=== PATIENT | male | born 2000 | race Caucasian/White ===

== ENCOUNTER 2022-10-07 21:13 | Emergency (ER) | payer OTHER, SELFPAY ==
[2022-10-07 21:19] VITALS: BP 143/100; PULSE 90; RESP 18; TEMP 36.6; O2SAT 96; BMI 21.5
[2022-10-07 21:54] LABS: Basophils # 0.1 10^3/uL (0.0-0.1); Basophils % 0.4 %; Eosinophils # 0.1 10^3/uL (0.0-0.8); Eosinophils % 0.6 %; Hematocrit 49.4 % (42.0-52.0); Lymphocytes # 1.4 10^3/uL (1.5-6.5); Lymphocytes % 12.1 %; Mean Corpuscular HGB Conc 34.4 g/dL (30.0-36.0); Mean Corpuscular Hemoglobin 29.5 pg (28.0-34.0); Mean Corpuscular Volume 85.8 fl (80-94); Mean Platelet Volume 9.8 fL (7.4-10.4); Monocytes # 0.8 10^3/uL (0.2-0.9); Monocytes % 6.5 %; Neutrophils # 9.33 10^3/uL (1.8-8.0); Neutrophils % 80.1 %; Nucleated Red Blood Cells % 0 %; Platelet Count 299 10^3/cmm (130-400); Red Blood Count 5.76 10^6/uL (4.1-5.3); Red Cell Distribution Width 11.6 % (12.1-15.1); White Blood Count 11.7 10^3/uL (4.5-13.0)
[2022-10-07] MEDS: OLANZapine 10 mg ODT 20 MG PO (22:15)
[2022-10-07] MEDS: LORazepam 2 mg Tablet PO (22:15)
[2022-10-07 22:17] LABS: Alanine Aminotransferase 14 U/L (0-41); Alkaline Phosphatase 77 U/L (40-130); Anion Gap 15.7 (5-19); Aspartate Amino Transferase 18 U/L (0-40); Blood Urea Nitrogen 12 mg/dL (6-20); Calcium 10.1 mg/dL (8.5-10.5); Carbon Dioxide 21 mmol/L (22-29); Chloride 106 mmol/L (98-107); Creatinine Clr Calc Pharmacy 131.5104; Globulin 2.7 g/dL (1.3-4.6); Glomerular Filtration Rate 107.6 mL/min (90-130); Glucose 112 mg/dL (65-115); Osmolality Calculated 289 mOsm/kg (285-295); Potassium 3.7 mmol/L (3.5-5.1); Sodium 139 mmol/L (136-145); Total Bilirubin 0.4 mg/dL (0.15-1.2); Total Protein 7.7 g/dL (6.6-8.7)
[2022-10-07 22:22] LABS: Acetaminophen < 5.0 ug/mL (10-30); Alcohol Level < 10 mg/dL (0-10); Salicylate < 0.3 mg/dL (3-10)
[2022-10-07 22:35] LABS: SARS Covid-2 Antigen negative (Negative)
--- NOTE | 2022-10-07 22:42 | W.ED.PSYCHS ---
HPI - Psych General: Chief Complaint: Psychiatric Symptoms Stated Complaint: SI with plan Time Seen by Provider: 10/07/22 21:22 Source: patient and police History of Present Illness: 22-year-old male with a history of depression. He is a patient at [facility], [place]. Evidently, he recently broke up with a girlfriend. Police were called and came to the patient's home where they found him kneeling, yelling. He told law enforcement that he wanted to end it . He had a gun on him at the time. He has not had to be hospitalized prior for psychiatric illness. He notes that he has not been sick recently. He denies fever. No recent alcohol use. MD complaint: suicidal ideation and feels depressed Onset (ago): hour(s) Duration: other History of same: No Relieving factors: none Exacerbating factors: other Context: significant life stressor Associated psychiatric symptoms: suicidal ideation Associated symptoms: Reports suicidal ideation; Deny auditory hallucinations, visual hallucinations, delusions or homicidal ideation If self harm: admits thoughts of self harm Review of Systems Const: Denies: fever(s) Eyes: Denies: change in vision ENMT: Denies: throat pain Card: Denies: chest pain Resp: Denies: dyspnea, productive cough or non-productive cough GI: Denies: abdominal pain, vomiting or diarrhea Neuro: Denies: confusion Psych: Reports: suicidal ideation; Denies: visual hallucinations, auditory hallucinations or homicidal ideation [facility] ED PFSH: Medical History Psychiatric care Physical Exam Const: COMMON NORMALS: no acute distress GENERAL APPEARANCE: cooperative; not ill appearing and not frail appearing HENMT: COMMON NORMALS: normocephalic, atraumatic and Normal external nose present HEAD & SCALP: normocephalic and atraumatic FACE & SINUS: normal facial exam and face symmetric NOSE: Normal external nose present Eye: COMMON NORMALS: Equal, round and reactive pupils present and EOMs intact bilaterally PUPIL: Yes Equal, round and reactive pupils present Neck/C-Spine: GENERAL: Yes trachea midline Chest: CHEST: Yes Symmetrical chest wall rise Resp: COMMON NORMALS: normal respiratory effort, No retractions, No use of accessory muscles and clear to auscultation bilaterally AUSCULTATION: clear to auscultation bilaterally Cardio: COMMON NORMALS: regular rate and regular rhythm RATE: regular rate RHYTHM: regular rhythm GI: COMMON NORMALS: Normal to inspection, nondistended, normoactive bowel sounds present Extremity: COMMON NORMALS: no pedal edema Neuro: GRACY COMA SCALE: document GCS findings [place] coma scale eye opening: Spontaneous [place] coma scale verbal response: Orientated [place] coma scale motor response: Obey commands [place] coma scale total score: 15 SENSORY EXAM: Yes extremities (intact) Psych: COMMON NORMALS: speech normal SPEECH: Yes normal speech THOUGHT CONTENT: No delusions Skin: COMMON NORMALS: no rashes or lesions noted GENERAL SKIN EXAM: no rashes or lesions noted Course Vital Signs: Vital signs: Vital Signs Temperature 97.8 F 10/07/22 21:19 Pulse Rate 90 10/07/22 21:19 Respiratory Rate 18 10/07/22 21:19 Blood Pressure 143/100 10/07/22 21:19 Pulse Oximetry 96 10/07/22 21:19 Oxygen Delivery Me thod 10/07/22 21:19 MDM - Psych Medical Decision Making Medically the patient is stable. Vitals have been good. Laboratories essentially unremarkable. No alcohol intoxication. Urine drug screening is negative as well. He asked for medication due to anxiety, and was given Zyprexa and lorazepam. He has been calm and resting comfortably. We have no beds available in our neuropsychiatric facility. We are attempting to call other facilities for bed availability. Affidavits were signed by law enforcement, but the patient is willing to be evaluated and treated in the inpatient setting currently. [facility] has expressed interest in excepting. They will talk to their physician a little later this morning. The patient remains medically stable and willing to go. Lab Data 10/07/22 21:39 10/07/22 21:39 Laboratory Results WBC 11.7 10^3/uL (4.5-13.0) 10/07/22 21:39 RBC 5.76 10^6/uL (4.1-5.3) H 10/07/22 21:39 Hgb 17.0 g/dL (11.7-16.6) H 10/07/22 21:39 Hct 49.4 % (42.0-52.0) 10/07/22 21:39 MCV 85.8 fl (80-94) 10/07/22 21:39 MCH 29.5 pg (28.0-34.0) 10/07/22 21:39 MCHC 34.4 g/dL (30.0-36.0) 10/07/22 21:39 RDW 11.6 % (12.1-15.1) L 10/07/22 21:39 Plt Count 299 10^3/cmm (130-400) 10/07/22 21:39 MPV 9.8 fL (7.4-10.4) 10/07/22 21:39 Neut % (Auto) 80.1 % 10/07/22 21:39 Lymph % (Auto) 12.1 % 10/07/22 21:39 [place] % (Auto) 6.5 % 10/07/22 21:39 Eos % (Auto) 0.6 % 10/07/22 21:39 Baso % (Auto) 0.4 % 10/07/22 21:39 Neut # (Auto) 9.33 10^3/uL (1.8-8.0) H 10/07/22 21:39 Lymph # (Auto) 1.4 10^3/uL (1.5-6.5) L 10/07/22 21:39 [place] # (Auto) 0.8 10^3/uL (0.2-0.9) 10/07/22 21:39 Eos # (Auto) 0.1 10^3/uL (0.0-0.8) 10/07/22 21:39 Baso # (Auto) 0.1 10^3/uL (0.0-0.1) 10/07/22 21:39 Nucleated RBC % (auto) 0 % 10/07/22 21:39 Nucleated RBCs # 0.0 /100WBC 10/07/22 21:39 Sodium 139 mmol/L (136-145) 10/07/22 21:39 Potassium 3.7 mmol/L (3.5-5.1) 10/07/22 21:39 Chloride 106 mmol/L (98-107) 10/07/22 21:39 Carbon Dioxide 21 mmol/L (22-29) L 10/07/22 21:39 Anion Gap 15.7 (5-19) 10/07/22 21:39 BUN 12 mg/dL (6-20) 10/07/22 21:39 Creatinine 0.9 mg/dL (0.7-1.2) 10/07/22 21:39 GFR Calculation 107.6 mL/min (90-130) 10/07/22 21:39 Glucose 112 mg/dL (65-115) 10/07/22 21:39 Calculated Osmolality 289 mOsm/kg (285-295) 10/07/22 21:39 Calcium 10.1 mg/dL (8.5-10.5) 10/07/22 21:39 Total Bilirubin 0.4 mg/dL (0.15-1.2) 10/07/22 21:39 AST 18 U/L (0-40) 10/07/22 21:39 ALT 14 U/L (0-41) 10/07/22 21:39 Alkaline Phosphatase 77 U/L (40-130) 10/07/22 21:39 Total Protein 7.7 g/dL (6.6-8.7) 10/07/22 21:39 Albumin 5.0 g/dL (3.5-5.2) 10/07/22 21:39 Globulin 2.7 g/dL (1.3-4.6) 10/07/22 21:39 TSH 1.30 uIU/mL (0.27-4.20) 10/07/22 21:39 Urine Color Yellow (Yellow) 10/07/22 23:14 Urine Appearance Clear (CLEAR) 10/07/22 23:14 Urine pH 7 (5-7) 10/07/22 23:14 Ur Specific [place] 1.010 (1.005-1.030) 10/07/22 23:14 Urine Protein Neg (Negative) 10/07/22 23:14 Urine Glucose (UA) Norm (Normal) 10/07/22 23:14 Urine Ketones Negative (Negative) 10/07/22 23:14 Urine Blood Neg (Negative) 10/07/22 23:14 Urine Nitrate Negative (Negative) 10/07/22 23:14 Urine Bilirubin Neg (Negative) 10/07/22 23:14 Urine Urobilinogen Neg mg/dL (Negative) 10/07/22 23:14 Ur Leukocyte Esterase Negative (Negative) 10/07/22 23:14 Salicylates < 0.3 mg/dL (3-10) L 10/07/22 21:39 Urine Opiates Screen Negative ng/mL (Negative) 10/07/22 23:14 Acetaminophen < 5.0 ug/mL (10-30) L 10/07/22 21:39 Ur Barbiturates Screen Negative ng/mL (Negative) 10/07/22 23:14 Ur Phencyclidine Scrn Negative ng/mL (Negative) 10/07/22 23:14 Ur Amphetamines Screen Negative ng/mL (Negative) 10/07/22 23:14 U Benzodiazepines Scrn Negative ng/mL (Negative) 10/07/22 23:14 Urine Cocaine Screen Negative ng/mL (Negative) 10/07/22 23:14 U Marijuana (THC) Screen Negative ng/mL (Negative) 10/07/22 23:14 Ethyl Alcohol < 10 mg/dL (0-10) 10/07/22 21:39 SARS-CoV-2 Ag (Rapid) negative (Negative) 10/07/22 21:48 Discharge Plan Discharge Patient Disposition: Xfer Psychiatric Hosp Clinical Impression: Suicidal ideation, Depression Condition: Stable Referrals: Marlee Sutherland MD [Primary Care Provider] - Coding Level of Care Code ED Lapping Machine Tender for Chg Fwd Exam Comprehensive
[2022-10-07 23:22] LABS: Add Urine Microscopic? NO; Charge for UA Resulting for Rev
[2022-10-07 23:26] LABS: Urine Appearance Clear (CLEAR); Urine Color Yellow (Yellow)
[2022-10-07 23:27] LABS: Bilirubin Urine Neg (Negative); Blood Urine Neg (Negative); Glucose Urine UA Norm (Normal); Ketones Urine Negative (Negative); Leukocyte Esterase Urine Negative (Negative); Nitrate Urine Negative (Negative); Protein Urine Neg (Negative); Urobilinogen Urine Neg (Negative); pH Urine 7 (5-7)
[2022-10-07 23:35] LABS: Amphetamines Screen Urine Negative (Negative); Barbiturates Screen Urine Negative (Negative); Benzodiazepines Screen Urine Negative (Negative); Cocaine Screen Urine Negative (Negative); Opiate Screen Urine Negative (Negative); PCP Screen Urine Negative (Negative); THC Screen Urine Negative (Negative)
[2022-10-08 06:45] VITALS: BP 101/57; PULSE 60; RESP 16; O2SAT 97
[2022-10-08 07:38] VITALS: BP 101/57; PULSE 60; RESP 16; O2SAT 97
== END 2022-10-08 07:40 ==
PROVIDERS: Emergency Provider Emergency Medicine; PCP Family Medicine
DX: R45.851 Suicidal ideations (principal); F32.A Depression, unspecified; Z20.822 Contact with and (suspected) exposure to COVID-19
CPT/HCPCS: 80053; 80306; 80307; 81003; 84443; 85025; 87426; 99285